=== PATIENT | male | born 1935 | race Caucasian/White ===

== ENCOUNTER 2016-11-26 14:55 | Emergency (ER) ==
[2016-11-26 15:09] VITALS: BP 125/70
[2016-11-26] MEDS ORDERED: XYLOCAINE-MPF 1% INJ ONE (16:11)
[2016-11-26] MEDS ORDERED: ROCEPHIN IM ONE (16:11)
--- NOTE | 2016-11-26 16:13 | PROVIDER DOCUMENTATION ---
HPI-EE General <Yeny Mejia - Last Filed: 11/26/16 16:11> - General Source: patient - History of Present Illness-EENT General EENT Location: reports: mouth (L lower lip) Quality of Pain: reports: aching Severity: reports: mild Onset/Duration: reports: unsure Timing: reports: still present Prearrival Treatment: Initiated no prearrival treatment Associated Symptoms: denies: change in hearing, cough, drooling, ear drainage, facial pain/swelling, fever, malaise, nasal congestion/drainage, poor fluid intake, poor solids intake, sinus infection, sore throat, tooth pain, voice change Locality of Occurance: Home Similar Symptoms Previously?: Yes Recently seen or treated by another doctor?: No - Throat/Dental Throat/Dental Problem Symptoms: reports: swelling of jaw/face (L lower lip) Throat/Dental Problem Context: denies: recent dental extractions, dental decay, exposure to allergen, foreign body, fractured tooth, ingestion, trauma/injury Recently seen a dentist or have an appointment?: No <Shakira Dailey - Last Filed: 11/26/16 16:20> - General Chief Complaint: Toothache Stated Complaint: MOUTH SWELLING Time Seen by Provider: 11/26/16 15:41 Allergies/Adverse Reactions: Patient Allergies Allergy/AdvReac Type Severity Reaction Status Date / Time No Known Allergies Allergy Verified 11/26/16 15:01 Home Medications: Home Medication List Medication Instructions Recorded Confirmed Last Taken Type Allopurinol [Zyloprim] 150 mg PO DAILY 06/23/15 12/05/15 11/26/16 History Amlodipine Besylate [Norvasc] 10 mg PO DAILY 06/23/15 12/05/15 11/26/16 History Aspirin EC 325 mg PO DAILY 06/23/15 12/05/15 11/26/16 History Cholecalciferol (Vitamin D3) 1 cap PO DAILY 06/23/15 12/05/15 11/26/16 History [Vitamin D3] Clonazepam [Klonopin] 0.5 mg PO HS 06/23/15 12/05/15 11/26/16 History Glipizide E.r. [Glucotrol Xl] 10 mg PO DAILY 06/23/15 12/05/15 11/26/16 History Lisinopril [Zestril] 20 mg PO DAILY 06/23/15 12/05/15 11/26/16 History Metoprolol [Lopressor] 50 mg PO DAILY 06/23/15 12/05/15 11/26/16 History Sucralfate 1 gm PO BID 06/23/15 12/05/15 11/26/16 History Tamsulosin HCl [Flomax] 0.4 mg PO HS 06/23/15 12/05/15 11/26/16 History Acetaminophen with Codeine 1 tab PO Q6H PRN PRN 12/05/15 12/05/15 11/26/16 History [Tylenol with Codeine #3 Tablet] LISINOpril [Prinivil] 20 mg PO DAILY #0 tablet 12/07/15 11/26/16 Rx Cephalexin [Keflex] 500 mg PO BID #20 capsule 11/26/16 Unknown Rx Furosemide [Lasix] 40 mg PO BID 11/26/16 11/26/16 11/26/16 History Prednisone 1 tab PO DAILY 11/26/16 11/26/16 11/26/16 History - History of Present Illness-EENT General Nature of Presenting Problem: Pt is 81 y/o M presents to the ED with L lower lip pain and L cheek. Pt states swelling of L lower lip also. Pt denies trauma or injury to lip. Pt denies F or chills. Pt denies dental pain. (Shakira Dailey) Review of Systems - Adult - REVIEW OF SYSTEMS - ADULT Constitutional: reports: no symptoms reported Eyes: reports: no symptoms reported Ears, Nose, Mouth & Throat: reports: mouth/dental pain (L lower lip pain). denies: ear pain, nose pain, throat pain Cardiovascular: reports: no symptoms reported Respiratory: reports: no symptoms reported Gastrointestinal: reports: no symptoms reported Genitourinary: reports: no symptoms reported Musculoskeletal: reports: no symptoms reported Integumentary: reports: no symptoms reported Neurological: reports: no symptoms reported Psychiatric: reports: no symptoms reported Endocrine: reports: no symptoms reported Hematologic/Lymphatic: reports: no symptoms reported Allergic/Immunologic: reports: no symptoms reported All Other Systems: Reviewed and Negative <Shakira Dailey - Last Filed: 11/26/16 16:20> Past History - Adult - PAST MEDICAL HISTORY-ADULT Major Childhood Illnesses: reports: denies history Cardiovascular: reports: HTN, hyperlipidemia Respiratory: reports: COPD, sleep apnea Gastrointestinal: reports: other (Hitial Hernia) Neurological: reports: dementia Other Conditions: reports: other cancer (skin) - PRIOR SURGERIES/PROCEDURES Surgical/Procedure History: reports: joint replacement, other (sleep apnea) - IMMUNIZATION STATUS Childhood Immunizations: See Nurse Assessment Flu Vaccine: See Nurse Assessment <Yeny MejiaSarah - Last Filed: 11/26/16 16:11> - PAST MEDICAL HISTORY-ADULT Review of Records: reports: Nursing Assessment Review, Medications Reviewed, Social history reviewed & non-contributory. Major Childhood Illnesses: reports: denies history Cardiovascular: reports: HTN, hyperlipidemia, [place] Respiratory: reports: COPD, sleep apnea Gastrointestinal: reports: denies history Obstetrical/Gynecological: reports: denies history Genitourinary: reports: denies history Musculoskeletal: reports: denies history Neurological: reports: dementia Endocrine/Immune: reports: Diabetes Other Conditions: reports: denies history - PRIOR SURGERIES/PROCEDURES Surgical/Procedure History: reports: joint replacement - IMMUNIZATION STATUS Childhood Immunizations: See Nurse Assessment Flu Vaccine: See Nurse Assessment - FAMILY HISTORY Family History: reviewed, not pertinent - SOCIAL HISTORY Smoking: quit greater than 1 year, cigarettes Substance Use: denies Living Situation: family <Shakira Dailey - Last Filed: 11/26/16 16:20> Physical Exam- EENT - Physical Exam EENT Initial Vital Signs Reviewed: Yes General Appearance: appears well, alert, no apparent distress Eye Exam: bilateral eye: normal inspection, PERRL, EOMI Ear Exam: bilateral ear: auricle normal, canal normal, TM normal Nasal Exam: normal inspection Throat Exam: pharynx normal, other (swelling to L lower lip and lesions to L side buccal mucosa) Neck: non-tender, full range of motion, supple, normal inspection Respiratory: chest non-tender, lungs clear, normal breath sounds, no pleuratic chest pain, no respiratory distress, no accessory muscle use Cardiovascular: normal peripheral pulses, regular rate, rhythm, no edema, no gallop, no JVD, no murmur Abdominal Exam: normal bowel sounds, non tender, soft, no organomegaly, no pulsatile mass Lymphatic: no adenopathy Back Exam: normal inspection, no CVA tenderness, no vertebral tenderness Extremity: normal range of motion, non-tender, normal gait, normal inspection, no pedal edema, no calf tenderness, normal capillary refill Integumentary: normal color, normal turgor, warm/dry Neurologic: grossly normal Psych/Mental Status: normal mood/affect, oriented x 3 <Shakira Dailey - Last Filed: 11/26/16 16:20> Progress <Yeny Mejia - Last Filed: 11/26/16 16:11> <Shakira Dailey - Last Filed: 11/26/16 16:20> - PLAN OF CARE/RESULTS Progress/Plan/Lab Results: Orders Category Date Time Status CefTRIAXONE [Rocephin] Med 11/26/16 16:11 Discontinued 1 gm IM NOW ONE Lidocaine 1% Pf [Xylocaine-Mpf 1%] Med 11/26/16 16:11 Discontinued 5 ml INJ NOW ONE Vital Signs - 24 hr 11/26/16 15:04 Temperature 98 F Pulse Rate 70 Respiratory 18 Rate Blood Pressure 125/70 O2 Sat by Pulse 96 Oximetry (Shakira Dailey) Departure - Departure Time of Disposition Order: 16:12 Certified Medical Emergency: Emergent <Yeny Mejia - Last Filed: 11/26/16 16:11> - Departure Time of Disposition Order: 16:20 Certified Medical Emergency: Emergent <Shakira Dailey - Last Filed: 11/26/16 16:20> - Departure DIAGNOSIS: Mouth abscess Disposition: HOME 01 Condition: Stable Additional Instructions: Follow up with the dentist. If not dental abscess, follow up with ENT, Dr. Hernandez ED Follow Up Instructions: You have been treated by a care provider in the Emergency Department. These instructions are being provided to you so you can have an understanding of how to care for yourself upon discharge. Upon discharge from the Emergency Department, you are responsible for making arrangements for follow-up care by a physician of your choice. Take all prescribed medications as directed. Return to the Emergency Department immediately for any new or worsening symptoms. You may call the Physician Referral phone number at [phone] to obtain a list of Physicians who are taking new patients. Prescriptions: Cephalexin [Keflex] 500 mg PO BID #20 capsule Referrals: Fletcher Perry MD [Primary Care Provider] - Light,Han W., MD [STAFF PHYSICIAN] - Attestation - Physician/ AARTI Attestation Patient care was provided by Advanced Practice Provider:: Yes Advanced Practice Provider:: Yeny Mejia Advanced Practice Provider documentation review:: The Mid-level provider documentation, treatment plan and medical decision making was reviewed by the physician who agrees with all treatment and medical decision making by the MLP. The physician spent face to face time with patient:: Yes Advanced Practice Provider documentation review:: The physician spent face to face time with this patient and agrees with all MLP documentation, treatment, and medical decision making by the MLP. See provider notes for further information. <Yeny Mejia - Last Filed: 11/26/16 16:11> - Scribe Verification/Attestation Scribe:: Shakira Dailey Acting as Scribe for:: Yeny Mejia Scribe documention review:: This chart was documented by a scribe and accurately reflects the service the provider performed and the decisions made by the provider. <Shakira Dailey - Last Filed: 11/26/16 16:20> Physician Attestation
== END 2016-11-26 17:01 | disposition home or self-care (01) ==
LOC: P.ED 14:55
DX: K12.2 Cellulitis and abscess of mouth (principal); R22.0 Localized swelling, mass and lump, head; R51 Headache; I10 Essential (primary) hypertension; E78.5 Hyperlipidemia, unspecified; I25.2 Old myocardial infarction; J44.9 Chronic obstructive pulmonary disease, unspecified; E11.9 Type 2 diabetes mellitus without complications; Z79.899 Other long term (current) drug therapy; Z79.82 Long term (current) use of aspirin; Z85.828 Personal history of other malignant neoplasm of skin; Z96.60 Presence of unspecified orthopedic joint implant; Z87.891 Personal history of nicotine dependence
CPT/HCPCS: 96372; J0696